=== PATIENT | female | born 1950 | race Caucasian/White ===

== ENCOUNTER 2016-09-20 13:29 | Emergency (ER) | payer BC ==
[2016-09-20 16:45] LABS: CALCIUM 9.3 mg/dL (8.5-10.1); CARBON DIOXIDE 27.2 mmol/L (21-32); CHLORIDE SERUM 99 mmol/L (98-107); CREATININE SERUM 0.6 mg/dL (0.6-1.0); GFR1 > 60 mL/min; GLUCOSE SERUM 118 mg/dL (74-106); POTASSIUM SERUM 4.7 mmol/L (3.5-5.1); SODIUM SERUM 134 mmol/L (136-145)
[2016-09-20 16:50] LABS: ALBUMIN 3.7 g/dL (3.4-5.0); ALKALINE PHOSPHATASE 57 U/L (46-116); ALT/SGPT 17 U/L (14-59); AST/SGOT 22 U/L (15-37); BILIRUBIN TOTAL 0.49 mg/dL (0.20-1.00)
[2016-09-20 17:02] LABS: BASOPHIL % 0.1 % (0-2); PLATELET COUNT 207 x10^3mcL (130-400); RED CELL DISTRIBUTION WIDTH 14.1 % (11.5-14.5)
[2016-09-20 20:23] VITALS: BP 141/73
== END 2016-09-20 20:23 | disposition home or self-care (01) ==
LOC: ED 13:29
PROVIDERS: Emergency Medicine
DX: I10 Essential (primary) hypertension (principal); Z86.79 Personal history of other diseases of the circulatory system
CPT/HCPCS: J0360

== ENCOUNTER 2018-07-28 14:55 | Emergency (ER) | payer BC ==
[~2018-07-28] VITALS: Ht 157.5 cm; Wt 56.4 kg
[2018-07-28 15:03] VITALS: Ht 157.5 cm; Wt 56.4 kg
[2018-07-28 18:12] LABS: BASOPHIL % 0.3 % (0-2); PLATELET COUNT 209 x10^3mcL (130-400); RED CELL DISTRIBUTION WIDTH 13.9 % (11.5-14.5)
[2018-07-28 18:37] LABS: CALCIUM 9.7 mg/dL (8.5-10.1); CARBON DIOXIDE 29.7 mmol/L (21-32); CHLORIDE SERUM 101 mmol/L (98-107); CREATININE SERUM 0.7 mg/dL (0.6-1.0); GFR1 > 60 mL/min; GLUCOSE SERUM 109 mg/dL (74-106); POTASSIUM SERUM 4.8 mmol/L (3.5-5.1); SODIUM SERUM 139 mmol/L (136-145)
[2018-07-28 18:48] LABS: ALBUMIN 3.7 g/dL (3.4-5.0); ALKALINE PHOSPHATASE 75 U/L (46-116); ALT/SGPT 14 U/L (14-59); AMYLASE 34 U/L (25-115); AST/SGOT 23 U/L (15-37); BILIRUBIN TOTAL 0.25 mg/dL (0.20-1.00); CHOLESTEROL 190 mg/dL (<200); HDL CHOLESTEROL 49 mg/dL (40-60); LIPASE 186 IU/L (73-393); MAGNESIUM 1.7 mg/dL (1.8-2.4); T4(THYROXINE) 6.7 ug/dL (4.7-13.3); TOTAL PROTEIN, SERUM 7.9 g/dL (6.4-8.2)
[2018-07-28 19:08] LABS: UA SPECIFIC GRAVITY <=1.005 (1.005-1.035); microscopic required? YES; urine erythrocyte 2+ (NEGATIVE)
[2018-07-28 19:23] LABS: AMPHETAMINE QUAL UR NONE DETECTED (See below)
[2018-07-28 21:42] VITALS: BP 111/60
== END 2018-07-28 21:42 | disposition home or self-care (01) ==
LOC: ED 14:55
PROVIDERS: Emergency Medicine
DX: R00.2 Palpitations (principal); J98.01 Acute bronchospasm; N39.0 Urinary tract infection, site not specified; I10 Essential (primary) hypertension; F17.210 Nicotine dependence, cigarettes, uncomplicated; E78.00 Pure hypercholesterolemia, unspecified; Z88.8 Allergy status to other drugs, medicaments and biological substances; Z90.49 Acquired absence of other specified parts of digestive tract
CPT/HCPCS: 36415; 83880; 87804; 99406; Q0092